=== PATIENT | male | born 1980 | race African-American/Black ===

== ENCOUNTER 2024-03-26 01:20 | Inpatient (IN) | payer OTHER ==
[~2024-03-26] VITALS: Ht 185.4 cm; Wt 125.3 kg
[2024-03-26] VITALS (16 sets, daily range): BP systolic 140–161; BP diastolic 74–94; TEMP 97.9–98.1; O2SAT 92–100
[2024-03-26] MEDS: IV NS 0.9% 1,000 ML BAG IV ONE (01:30)
[2024-03-26 02:03] LABS: BASOPHILS # (AUTO) 0.1 K/uL (0.0-0.2); BASOPHILS % (AUTO) 0.9 % (0.0-2.0); EOSINOPHILS # (AUTO) 0.8 K/uL (0.0-0.7); EOSINOPHILS % (AUTO) 7.2 % (0.0-6.0); HEMATOCRIT 49 % (39-51); HEMOGLOBIN 16.2 g/dL (13.5-17.5); LYMPHOCYTES # (AUTO) 1.4 K/uL (0.8-4.8); MEAN CORPUSCULAR HEMOGLOBIN 29 PG (26.0-33.0); MEAN CORPUSCULAR HGB CONC 34 g/dl (31.0-36.0); MEAN CORPUSCULAR VOLUME 88 fL (80-96); MONOCYTES # (AUTO) 1.4 K/uL (0.1-1.30); MONOCYTES % (AUTO) 11.9 % (2.0-12.0); PLATELET COUNT (AUTO) 354 K/uL (150-450); RED BLOOD CELL COUNT(AUTO) 5.52 MIL/uL (4.5-6.0); RED CELL DISTRIBUTION WIDTH 13.8 % (11.5-15.0); WHITE BLOOD COUNT (AUTO) 11.8 K/uL (4.3-11.0)
[2024-03-26 02:14] LABS: CALCIUM, SERUM 9.6 mg/dL (8.5-10.1); CARBON DIOXIDE 26 mmol/L (21-32); CHLORIDE 99 mmol/L (98-107); CREATININE 1.6 mg/dL (0.6-1.3); GLUCOSE 140 mg/dL (74-106); POTASSIUM 3.4 mmol/L (3.5-5.1); SODIUM SERUM 138 mmol/L (136-145); UREA NITROGEN, BLOOD 14 mg/dL (7-18)
[2024-03-26 02:21] LABS: INR 0.98 (0.91-1.10); PARTIAL THROMBOPLASTIN TIME 22.9 SEC (24.3-34.3); PROTHROMBIN TIME 10.4 SECS (9.2-11.1)
[2024-03-26 02:27] LABS: ALANINE AMINOTRANSFERASE 48 U/L (12-78); ALBUMIN 4.1 g/dL (3.4-5.0); ALKALINE PHOSPHATASE 45 U/L (46-116); ASPARTATE AMINOTRANSFERASE 20 U/L (15-37); BILIRUBIN,DIRECT 0.2 mg/dL (0.0-0.2); BILIRUBIN,TOTAL 0.8 mg/dL (0.2-1.0); TOTAL PROTEIN, SERUM 8.6 g/dL (6.4-8.2)
[2024-03-26] MEDS: IV LR 1000 ML 1,000 ML IV SCH (04:00)
[2024-03-26] MEDS ORDERED: MAG HYDROX/AL HYDROX/SIMETH 30 ML UDC PO PRN (04:00)
[2024-03-26] MEDS ORDERED: ONDANSETRON HCL/PF 4 MG/2 ML VIAL IVP PRN (04:00)
[2024-03-26] MEDS: methylPREDNISolone SOD SUCC 125 MG/2ML VIAL IV ONE (04:00)
[2024-03-26] MEDS ORDERED: MAGNESIUM HYDROXIDE 30 ML UDC PO PRN (04:00)
[2024-03-26] MEDS ORDERED: methylPREDNISolone SOD SUCC 125 MG/2ML VIAL ONE (04:02)
[2024-03-26] MEDS: IPRATROPIUM NEB FS 0.5 MG/2.5 ML AMPUL.NEB NEB ONE (04:22)
[2024-03-26] MEDS: ALBUTEROL FS 2.5 MG/3 ML VIAL.NEB NEB ONE (04:22)
[2024-03-26] MEDS ORDERED: IPRATROPIUM NEB FS 0.5 MG/2.5 ML AMPUL.NEB ONE (04:34)
[2024-03-26] MEDS ORDERED: ALBUTEROL FS 2.5 MG/3 ML VIAL.NEB ONE (04:34)
[2024-03-26 06:49] LABS: MAGNESIUM 1.6 mg/dL (1.8-2.4); PHOSPHORUS 1.9 mg/dL (2.5-4.9)
[2024-03-26 07:00] LABS: THYROID STIMULATING HORMONE 1.01 uIU/mL (0.358-3.74)
[2024-03-26] MEDS ORDERED: ALBU18HF2 IH (07:41)
[2024-03-26] MEDS ORDERED: AMLO-212 PO (07:41)
[2024-03-26] MEDS ORDERED: HYDR25TA4 PO (07:41)
[2024-03-26] MEDS ORDERED: ACETAMINOPHEN 325 MG TABLET ONE (08:15)
[2024-03-26] MEDS: ACETAMINOPHEN 325 MG TABLET PO PRN (08:18)
[2024-03-26] MEDS ORDERED: CEFTRIAXONE 1 G in IV D5W 50 ML IV SCH (10:00)
[2024-03-26] MEDS ORDERED: AZITHROMYCIN 500 MG in IV D5W 250 ML IV SCH (10:00)
[2024-03-26] MEDS ORDERED: ENOXAPARIN SODIUM 40 MG/0.4 ML DISP.SYRIN SQ SCH (10:00)
[2024-03-26] MEDS: methylPREDNISolone SOD SUCC 40 MG/ML VIAL IV SCH (10:00)
[2024-03-26] MEDS: POTASSIUM CHLORIDE 20 MEQ TAB.PRT.SR PO SCH ×2 (10:30→11:00)
[2024-03-26] MEDS: HEPARIN SODIUM, PORCINE 5000 UNITS/1 ML VIAL SQ SCH (10:54)
[2024-03-26] MEDS: MAGNESIUM OXIDE 400 MG TABLET PO ONE (11:06)
[2024-03-26] MEDS: LEVOFLOXACIN (250MG) 250 MG TABLET PO SCH (11:07)
[2024-03-26] MEDS: AMLODIPINE BESYLATE 5 MG TABLET PO SCH (11:07)
[2024-03-26] MEDS: Magnesium 1GM/D5W 100ML PREMIX 100 ML IV SCH (11:11)
[2024-03-26] MEDS ORDERED: IPRATROPIUM NEB FS 0.5 MG/2.5 ML AMPUL.NEB NEB SCH (11:30)
[2024-03-26] MEDS ORDERED: ALBUTEROL HALF STRENGTH 1.25 MG/3 ML VIAL.NEB NEB SCH (11:30)
[2024-03-26] MEDS: methylPREDNISolone SOD SUCC 125 MG/2ML VIAL IV SCH (11:36)
[2024-03-26] MEDS: ALBUTEROL HALF STRENGTH 1.25 MG/3 ML VIAL.NEB NEB SCH (11:41)
[2024-03-26] MEDS: IPRATROPIUM NEB FS 0.5 MG/2.5 ML AMPUL.NEB NEB SCH (11:41)
[2024-03-26] MEDS: NEUTRA PHOS 1 POWD.PACKET PO SCH ×2 (11:53→17:37)
[2024-03-26] MEDS ORDERED: NEUTRA PHOS 1 POWD.PACKET PO SCH (12:00)
[2024-03-26] MEDS: POTASSIUM CHLORIDE 20 MEQ POWDER PACKET PO ONE (12:34)
[2024-03-26] MEDS: IV LR 1000 ML 1,000 ML IV PRN (15:10)
[2024-03-26] MEDS: IPRATROPIUM NEB FS 0.5 MG/2.5 ML AMPUL.NEB NEB PRN (17:47)
[2024-03-26] MEDS ORDERED: MORPHINE SULFATE INJ 4 MG/ML DISP.SYRIN IV ONE (22:00)
[2024-03-26] MEDS ORDERED: TRAMADOL HCL 50 MG TABLET PO PRN (22:30)
[2024-03-27] VITALS (17 sets, daily range): BP systolic 120–160; BP diastolic 78–101; TEMP 97.2–98.8; O2SAT 95–100
[2024-03-27 07:38] LABS: BASOPHILS % (AUTO) 0.1 % (0.0-2.0); HEMATOCRIT 46 % (39-51); HEMOGLOBIN 15.5 g/dL (13.5-17.5); LYMPHOCYTES # (AUTO) 0.5 K/uL (0.8-4.8); LYMPHOCYTES % (AUTO) 3.9 % (20.0-44.0); MEAN CORPUSCULAR HEMOGLOBIN 30 PG (26.0-33.0); MEAN CORPUSCULAR HGB CONC 34 g/dl (31.0-36.0); MEAN CORPUSCULAR VOLUME 88 fL (80-96); MONOCYTES % (AUTO) 7.9 % (2.0-12.0); NEUTROPHILS # (AUTO) 11.3 K/uL (1.8-8.9); NEUTROPHILS % (AUTO) 88.1 % (43.0-81.0); PLATELET COUNT (AUTO) 325 K/uL (150-450); RED BLOOD CELL COUNT(AUTO) 5.25 MIL/uL (4.5-6.0); RED CELL DISTRIBUTION WIDTH 14.5 % (11.5-15.0); WHITE BLOOD COUNT (AUTO) 12.9 K/uL (4.3-11.0)
[2024-03-27 07:47] LABS: ALBUMIN 3.6 g/dL (3.4-5.0); BILIRUBIN,TOTAL 0.4 mg/dL (0.2-1.0); CALCIUM, SERUM 9.2 mg/dL (8.5-10.1); CREATININE 1.4 mg/dL (0.6-1.3); MAGNESIUM 2.7 mg/dL (1.8-2.4); PHOSPHORUS 5.1 mg/dL (2.5-4.9); POTASSIUM 4.8 mmol/L (3.5-5.1); TOTAL PROTEIN, SERUM 8.3 g/dL (6.4-8.2)
[2024-03-27] MEDS: FLUTICASONE PROPIONATE 16 GM BOTTLE NS SCH (13:50)
[2024-03-27] MEDS: P-EPHED SUL/LORATADINE (24H) 1 TAB.SR.24H PO SCH (14:38)
[2024-03-28] VITALS (17 sets, daily range): BP systolic 132–153; BP diastolic 82–99; TEMP 97.5–98.2; O2SAT 93–100
[2024-03-28 07:03] LABS: HEMATOCRIT 44 % (39-51); HEMOGLOBIN 15.2 g/dL (13.5-17.5); LYMPHOCYTES # (AUTO) 0.4 K/uL (0.8-4.8); LYMPHOCYTES % (AUTO) 2.7 % (20.0-44.0); MEAN CORPUSCULAR HEMOGLOBIN 30 PG (26.0-33.0); MEAN CORPUSCULAR HGB CONC 34 g/dl (31.0-36.0); MEAN CORPUSCULAR VOLUME 88 fL (80-96); MONOCYTES # (AUTO) 0.6 K/uL (0.1-1.30); MONOCYTES % (AUTO) 4.3 % (2.0-12.0); NEUTROPHILS # (AUTO) 13.4 K/uL (1.8-8.9); PLATELET COUNT (AUTO) 316 K/uL (150-450); RED BLOOD CELL COUNT(AUTO) 5.07 MIL/uL (4.5-6.0); RED CELL DISTRIBUTION WIDTH 14.6 % (11.5-15.0); WHITE BLOOD COUNT (AUTO) 14.4 K/uL (4.3-11.0)
[2024-03-28 07:31] LABS: CALCIUM, SERUM 8.7 mg/dL (8.5-10.1); CREATININE 1.3 mg/dL (0.6-1.3); POTASSIUM 4.1 mmol/L (3.5-5.1)
[2024-03-28 10:06] LABS: *SPE A/G RATIO 0.9 (0.7-1.7); *SPE ALBUMIN 3.7 g/dL (2.9-4.4); *SPE ALPHA-1-GLOBULIN 0.3 g/dL (0.0-0.4); *SPE ALPHA-2-GLOBULIN 0.9 g/dL (0.4-1.0); *SPE BETA GLOBULIN 1.2 g/dL (0.7-1.3); *SPE M-SPIKE Not Observed g/dL (Not Observed); *SPE PROTEIN TOTAL 7.7 g/dL (6.0-8.5); *SPEGAMMA GLOBULIN 1.7 g/dL (0.4-1.8); PTH, INTACT 34 pg/mL (15-65)
[2024-03-29] VITALS (9 sets, daily range): BP systolic 129–148; BP diastolic 85–98; TEMP 98.1–98.4; O2SAT 92–100
[2024-03-29] MEDS ORDERED: LEVO500T90 PO (08:57)
[2024-03-29] MEDS ORDERED: METH4TAB3 PO (08:57)
[2024-03-29] MEDS ORDERED: ALBU8.5H8 INH (08:57)
[2024-03-29] MEDS: methylPREDNISolone SOD SUCC 125 MG/2ML VIAL IV SCH (10:53)
[2024-03-29] MEDS: NEUTRA PHOS 1 POWD.PACKET ONE (14:55)
== END 2024-03-29 14:45 | disposition home or self-care (01) | DRG 141 ==
LOC: ER 01:23 → TRANSITION 03:52 → TELE 06:02
PROVIDERS: ADMIT Nurse Practitioner Acute Care; ATTEND Nurse Practitioner Acute Care
DX: J45.901 Unspecified asthma with (acute) exacerbation (principal); J96.01 Acute respiratory failure with hypoxia; N17.0 Acute kidney failure with tubular necrosis; J15.9 Unspecified bacterial pneumonia; D68.69 Other thrombophilia; E83.39 Other disorders of phosphorus metabolism; E86.0 Dehydration; R55 Syncope and collapse; I10 Essential (primary) hypertension; J45.909 Unspecified asthma, uncomplicated; J20.9 Acute bronchitis, unspecified; E66.9 Obesity, unspecified; E83.42 Hypomagnesemia; E87.6 Hypokalemia; J32.0 Chronic maxillary sinusitis; M89.8X9 Other specified disorders of bone, unspecified site; Z20.822 Contact with and (suspected) exposure to COVID-19; Z68.36 Body mass index [BMI] 36.0-36.9, adult; G47.33 Obstructive sleep apnea (adult) (pediatric); N18.9 Chronic kidney disease, unspecified
CPT/HCPCS: 36415; 70220-TC; 70450-TC; 71045-TC; 76770-TC; 80048-TC; 80053-TC; 80076-TC; 82550-TC; 82553; 83735-TC; 83880; 83970; 84100-TC; 84155; 84165; 84443-TC; 84484-TC; 85025-TC; 85378-TC; 85730-TC; 86850-TC; 93307-TC; 93880-TC; 94760-TC; 94799-TC; A4223; G0378; J0456; J0696; J1644; J2919; J3475; J3490; J7050; J7060; J7120